=== PATIENT | female | born 1995 | race Caucasian/White ===

== ENCOUNTER 2018-07-02 15:31 | Emergency (ER) | payer MEDICAID ==
--- NOTE | 2018-07-02 16:01 | ED Physician Chart ---
ED Chief Complaint/HPI - Patient Information Date Seen:: 07/02/18 Time Seen:: 15:50 Chief Complaint:: laceration History of Present Illness:: 22 yr old female with laceration rt forearm yest here for tet shot Vitals:: Vital Signs - 8 hr 07/02/18 15:38 Temp 98.8 F HR 66 RR 18 BP 142/80 O2 Sat % 100 ED Review of Systems - Review of Systems General/Constitutional: No fever, No chills, No weight loss, No weakness, No diaphoresis, No edema, No loss of appetite Skin: Other (small skin avulsion rt mid forearm dorsally happened when she went up the steps at someones house that had kaden iron fence) Head: No headache, No light-headedness Eyes: No loss of vision, No pain, No diplopia ENT: No earache, No nasal drainage, No sore throat, No tinnitus Neck: No neck pain, No swelling, No thyromegaly, No stiffness, No mass noted Cardio Vascular: No chest pain, No palpitations, No PND, No orthopnea, No edema Pulmonary: No SOB, No cough, No sputum, No wheezing GI: No nausea, No vomiting, No diarrhea, No pain, No melena, No hematochezia, No constipation, No hematemesis G/U: No dysuria, No frequency, No hematuria Musculoskeletal: No bone or joint pain, No back pain, No muscle pain Endocrine: No polyuria, No polydipsia Psychiatric: No prior psych history, No depression, No anxiety, No suicidal ideation Hematopoietic: No bruising, No lymphadenopathy Allergic/Immuno: No urticaria, No angioedema Neurological: No syncope, No focal symptoms, No weakness, No paresthesia, No headache, No seizure, No dizziness, No confusion, No vertigo ED Past Medical History - Past Medical History Past Medical History: No significant medical hx ED Physical Exam - Physical Examination General/Constitutional: Awake, Well-developed, well-nourished, Alert, No distress, GCS 15, Non-toxic appearing, Ambulatory Head: Atraumatic Eyes: Lids, conjuctiva normal, PERRL, EOMI Skin: Nl inspection, No rash, No skin lesions, No ecchymosis, Well hydrated, No lymphadenopathy Other Skin comments:: small skin avulsion size of a pacheco thakur on dorsum rt mid forearm ENMT: External ears, nose nl, Nasal exam nl, Lips, teeth, gums nl Neck: Nontender, Full ROM w/o pain, No JVD, No nuchal rigidity, No bruit, No mass, No stridor Respiratory: Nl effort/Exclusion, Clear to Auscultation, No Wheeze/Rhonchi/Rales Cardio Vascular: RRR, No murmur, gallop, rubs, NL S1 S2 GI: No tenderness/rebounding/guarding, No organomegaly, No hernia, Normal BS's, Nondistended, No mass/bruits, No McBurney tenderness : No CVA tenderness Extremities: No tenderness or effusion, Full ROM, normal strength in all extremities, No edema, Normal digits & nails Neuro/Psych: Alert/oriented, DTR's symmetric, Normal sensory exam, Normal motor strength, Judgement/insight normal, Mood normal, Normal gait, No focal deficits Misc: Normal back, No paraspinal tenderness ED Assessment - Assessment General Assessment: skin avulsion Wound Length: 0.5 cm Prep/Irrigation:: wound cleaned with peroxide and painted with betadyne and gauze dressing applied by nurse under my supervision and dtap inj given Inspection: No dirt/debris, NO FB Post Procedure/Splint Exam: No Active Bleeding, Full Range of Motion, Neuro/ Vascular Exam ED Septic Shock - . Is Septic Shock (SBP<90, OR Lactate>4 mmol\L) present?: No - <6hrs of presentation: Vital Signs: Vital Signs - 8 hr 07/02/18 15:38 Temp 98.8 F HR 66 RR 18 BP 142/80 O2 Sat % 100 ED Reassessment (Disposition) - Reassessment Reassessment Condition:: Improved - Diagnosis Diagnosis:: skin avulsion - Aftercare/Follow up Instructions Notes:: pt given wound care instructions - Patient Disposition Discharge/Transfer:: Home Condition at Disposition:: Stable
[2018-07-02] MEDS ORDERED: Triple Antibiotic 0.94 gm Pkt TP ONE (16:09)
[2018-07-02] MEDS ORDERED: Triple Antibiotic 0.94 gm Pkt TP STA (16:51)
== END 2018-07-02 15:52 | disposition home or self-care (01) ==
LOC: ER 15:31
DX: S51.811A Laceration without foreign body of right forearm, initial encounter (principal); W45.8XXA Other foreign body or object entering through skin, initial encounter; Y93.89 Activity, other specified; Y92.89 Other specified places as the place of occurrence of the external cause; Y99.8 Other external cause status
CPT/HCPCS: Z7502